=== PATIENT | female | born 1935 | race Caucasian/White ===

== ENCOUNTER 2024-01-31 06:30 | Day surgery (SDC) | payer OTHER, SELFPAY ==
[2024-01-23 09:55] VITALS: BMI 28.9
[2024-01-23 10:18] LABS: Hematocrit 39.8 % (37.0-47.0); Hemoglobin 13.3 g/dL (12.0-16.0); Mean Corp Hgb Conc. 33.4 g/dL (33.0-37.0); Mean Corpuscular Hgb 28.4 pg (27.0-31.0); Mean Corpuscular Volume 84.9 fL (81.0-99.0); Mean Platelet Volume 9.5 fL (7.4-10.4); Platelet Count 308 10^3/uL (130-400); Red Blood Cell Count 4.69 10^6/uL (4.20-5.40); Red Cell Dist. Width 14.4 % (11.5-14.5); White Blood Cell Count 6.4 10^3/uL (4.8-10.8)
[2024-01-23 10:19] LABS: Urine Albumin Trace (Neg - Trace); Urine Bilirubin Negative (Negative); Urine Character Slightly Cloudy (Clear); Urine Color Yellow; Urine Glucose Negative (Negative); Urine Ketone Negative (Negative); Urine Leukocyte 2+ (Negative); Urine Nitrite Negative (Negative); Urine Occult Blood 1+ (Negative); Urine Urobilinogen Negative (Neg - 1+)
[2024-01-23 10:27] LABS: INR 1.63; PT 19.4 Sec (11.4-14.6)
[2024-01-23 10:28] LABS: APTT 38.5 Sec (23.4-35.0); Urine Red Blood Cell 0-2 /HPF (0-2); Urine White Cell 30-40 /HPF (0-5)
[2024-01-23 11:04] LABS: Blood Urea Nitrogen 13 mg/dl (7-17); Estimated Creatinine Clearance 51 ml/min; Glucose 91 mg/dl (70-99); Sodium 137 mmol/L (135-145); eGFR > 60.00
[2024-01-23 11:05] LABS: Calcium 9.3 mg/dl (8.4-10.2); Carbon Dioxide 24 mmol/L (22-30); Chloride 106 mmol/L (98-107); Potassium 4.1 mmol/L (3.5-5.1)
--- NOTE | 2024-01-24 13:59 | PTCARENOTE ---
Abnormal lab values on 01/22: Urine WBC's 30-40; INR 1.63. Reported to Paty at Dr. Jimenez' office.
[2024-01-31] VITALS (10 sets, daily range): BP systolic 112–158; BP diastolic 65–104; BMI 28.9
[2024-01-31] MEDS: CYSVIEW KIT 100 MG INTRAVES (09:35)
[2024-01-31] MEDS: NORMOSOL-R 1000 IV (09:40)
[2024-01-31] MEDS: Pyridium 200 MG PO (12:37)
== END 2024-01-31 13:55 | disposition home or self-care (01) ==
LOC: SDS 06:30
PROVIDERS: ATTENDING PHYSICIAN Specialist; FAMILY PHYSICIAN Student in an Organized Health Care Education/Training Program; OTHER PHYSICIAN Internal Medicine
DX: N30.00 Acute cystitis without hematuria (principal); N30.20 Other chronic cystitis without hematuria; Z85.51 Personal history of malignant neoplasm of bladder
CPT/HCPCS: 52235; C9738; 88307; 36415; 80048; 81003; 81015; 85027; 85610; 85730; 87070; 88341; 88342

== ENCOUNTER 2024-06-18 11:35 | Emergency (ER) | payer OTHER, SELFPAY ==
[2024-06-18 11:38] VITALS: BP 131/74
[2024-06-18 13:00] VITALS: BP 149/70
[2024-06-18] MEDS: DILAUDID 0.5 MG IV (13:08)
[2024-06-18 13:20] VITALS: BP 164/77
--- NOTE | 2024-06-18 14:16 | ED.MUSCINJ ---
HPI-Injury
General
Chief Complaint: Musculo-Skeletal Complaint
Source: patient
Exam Limitations: none
Time Seen by Provider: 06/18/24 12:12
History of Present Illness-Injury
Initial Injury comments:
89-year-old female presents after trip and fall earlier today landing on outstretched left hand. She complains of left wrist swelling and pain. She is on Eliquis twice a day. She did not hit her head. No other complaints at this time.
Past History
Past History
ED Past Medical History: Arrthythmia (afib), CVA (TIA), GERD, HTN, Hypercholesterolemia, Other (anemia), Other (IBS) and Other ([place] Palsy)
ED Past Surgical History: Appendectomy and Orthopedic
Social History
Tobacco: Non-smoker
Alcohol: None
Drug: None
Personal:
Living: with family
Employment: Retired
Family History
Family History: Hypertension
Phy Exam
Physical Exam
Physical Exam:
General: Well appearing female NAD
HEENT: NC/AT
Heart: RRR, no murmurs
Lungs; CTA
MSK: left wrist swollen, with ecchymosis and tenderness, slight deformity, no tenderness to elbow
Neuro: Alert and oriented. Good sensation to left hand
Injury Course
Orders/Labs/Results
Orders:
Orders
06/18/24 11:40
Wrist, Left 3 Views CR [CR Wrist - Left Min 3 Views] Urgent
Comment:
Reason For Exam: pain and swelling after a fall
06/18/24 12:34
HYDROmorphone [Dilaudid] 0.5 mg IV NOW STA
06/18/24 13:26
CR Wrist - Left Min 2 Views Urgent
Reason For Exam: post reduction
MDM/Problems Addressed
Differential Diagnosis Includes:
Left wrist pain and swelling after fall. Consider fracture first dislocation versus sprain
I personally visualized x-rays of the left wrist that were taken through triage which demonstrate angulated impacted and slightly displaced distal radius fracture with associated ulnar styloid fracture.
Discussed findings with patient and daughter. Recommended attempt at reduction. They are in agreement.
Patient given IV Dilaudid for pain control and hematoma block. Patient's hand was placed in finger traps using an IV pole and weight was applied to the upper arm to apply traction. Dorsal pressure was then applied over the fracture site and the
patient was splinted in this position. Cast padding 2 inch OCL and Iban bandages were used to make a sugar-tong splint. She was neurovascular intact after the splint was applied. Postreduction films demonstrate significant improvement of the
fracture however there is still slight posterior displacement. Relayed this information to the patient. Advised the need to follow-up with orthopedics. Stable for the. She is comfortable taking [id number] medication at home for pain
*Critical Care Note
Total Time (30-74mins, 75-104mins- exclusive of procedures): Not Applicable
ED Attending Note
-
Portions of this chart may have been created with voice recognition software.� Occasional wrong word or��sound alike� substitutions may have occurred due to the inherent limitations of voice recognition software.
Discharge Plan
Departure
Patient Disposition: Home (Routine Discharge)
Date of Disposition: 06/18/24
Time of Disposition: 14:22
Patient with high blood pressure during this ER visit?: No
Discharge Problem:
Distal radial fracture
Instructions: Muscle and Bone Pain (DC), Splint Care
Prescriptions:
No Action
simvastatin 40 MG tablet
40 mg PO HS
zolpidem 5 MG tablet
2.5 mg PO HS PRN (Reason: sleep)
Patient Comments:
05/05/2022: last filled 04/10/22, 90 tabs for 90 days from [facility]
diltiazem HCl 60 MG tablet
60 mg PO QPM
Patient Comments:
AFTER DINNER
tramadol 50 mg tablet
50 mg PO TID PRN (Reason: pain) Qty: 10 0RF
gabapentin 400 mg Capsule
400 mg PO BID
ferrous sulfate [Feosol] 325 mg (65 mg iron) Tablet
325 mg PO Q48H
metoprolol succinate 25 mg Tablet Extended Release 24 Hr
25 mg PO DAILY
coenzyme Q10 [Co Q-10] 200 mg Capsule
200 mg PO DAILY
Eliquis 5 mg Tablet
5 mg PO BID
Glucosamine Chondroitin 550-30-1 mg Capsule
1 cap PO BID
Jonatan Red Krill Oil
350 mg PO DAILY
Prevagen
1 tab PO DAILY
Cbd Gummy
1 dose PO PRN PRN (Reason: Pain)
melatonin 10 mg Tablet
10 mg PO HS PRN (Reason: Insomnia)
omeprazole 40 mg Capsule,Delayed Release(Dr/Ec)
40 mg PO DAILY
Referrals:
Mya Carey MD [Family Provider] -
Landon Hawkins MD [Active] -
Activity Restrictions/Additional Instructions:
Elevate for swelling. Use Tylenol for pain. Keep splint on and dry. Return if worse otherwise follow-up with orthopedics for next available appointment
Interventions
Interventions:
ED-Musculoskeletal Assessment Last Done: 06/18/24 12:30
Discharge Date and Time
Print Language: ANGUILLAN
== END 2024-06-18 15:01 | disposition home or self-care (01) ==
LOC: EMR 11:35
PROVIDERS: EMERGENCY PHYSICIAN Emergency Medicine; FAMILY PHYSICIAN Student in an Organized Health Care Education/Training Program
DX: S52.572A Other intraarticular fracture of lower end of left radius, initial encounter for closed fracture (principal); S52.612A Displaced fracture of left ulna styloid process, initial encounter for closed fracture; W01.0XXD Fall on same level from slipping, tripping and stumbling without subsequent striking against object, subsequent encounter; I10 Essential (primary) hypertension; Z79.01 Long term (current) use of anticoagulants
CPT/HCPCS: 25605; 99285; 96374; 73100; 73110

== ENCOUNTER 2024-06-25 06:18 | Day surgery (SDC) | payer OTHER, SELFPAY ==
[2024-06-25] VITALS (13 sets, daily range): BP systolic 112–189; BP diastolic 70–150; BMI 27.6
[2024-06-25 15:04] LABS: Hematocrit 35.3 % (37.0-47.0); Hemoglobin 11.7 g/dL (12.0-16.0); Mean Corp Hgb Conc. 33.1 g/dL (33.0-37.0); Mean Corpuscular Hgb 28.9 pg (27.0-31.0); Mean Corpuscular Volume 87.2 fL (81.0-99.0); Mean Platelet Volume 9.7 fL (7.4-10.4); Platelet Count 296 10^3/uL (130-400); Red Blood Cell Count 4.05 10^6/uL (4.20-5.40); Red Cell Dist. Width 14.1 % (11.5-14.5); White Blood Cell Count 6.1 10^3/uL (4.8-10.8)
[2024-06-25 15:09] LABS: Blood Urea Nitrogen 10 mg/dl (7-17); Carbon Dioxide 24 mmol/L (22-30); Chloride 104 mmol/L (98-107); Estimated Creatinine Clearance 52 ml/min; Glucose 90 mg/dl (70-99); Potassium 4.2 mmol/L (3.5-5.1); Sodium 139 mmol/L (135-145); eGFR > 60.00
[2024-06-25] MEDS: TYLENOL 1000 MG PO (15:15)
[2024-06-25] MEDS: DILAUDID 0.25 MG IV (18:18)
[2024-06-25] MEDS: ZOFRAN 4 MG IV (18:37)
[2024-06-25] MEDS: COMPAZINE 5 MG IV (18:50)
== END 2024-06-25 19:50 | disposition home or self-care (01) ==
LOC: SDS 06:18
PROVIDERS: ATTENDING PHYSICIAN Orthopaedic Surgery Hand Surgery
DX: S62.102A Fracture of unspecified carpal bone, left wrist, initial encounter for closed fracture (principal); X58.XXXA Exposure to other specified factors, initial encounter
CPT/HCPCS: 25607; 80048; 85027; 87070; 93005; C1713

== ENCOUNTER → 2024-09-10 11:02 | Outpatient (REF) | payer OTHER, SELFPAY | LOC: RCS 11:02 | PROVIDERS: ATTENDING PHYSICIAN Nurse Practitioner Gerontology; FAMILY PHYSICIAN Student in an Organized Health Care Education/Training Program | DX: I34.0 Nonrheumatic mitral (valve) insufficiency (principal) | CPT/HCPCS: 93306 ==

== ENCOUNTER → 2024-09-30 10:04 | Outpatient (REF) | payer OTHER, SELFPAY | LOC: HWRAD 10:04 | PROVIDERS: ATTENDING PHYSICIAN Student in an Organized Health Care Education/Training Program | DX: Z87.81 Personal history of (healed) traumatic fracture (principal); N95.9 Unspecified menopausal and perimenopausal disorder | CPT/HCPCS: 77080 ==

== ENCOUNTER → 2024-11-20 10:41 | Outpatient (REF) | payer OTHER, SELFPAY | LOC: RAD 10:41 | PROVIDERS: ATTENDING PHYSICIAN Student in an Organized Health Care Education/Training Program; FAMILY PHYSICIAN Student in an Organized Health Care Education/Training Program | DX: M54.9 Dorsalgia, unspecified (principal); M81.0 Age-related osteoporosis without current pathological fracture; R29.890 Loss of height; S22.080S Wedge compression fracture of T11-T12 vertebra, sequela; S62.102S Fracture of unspecified carpal bone, left wrist, sequela | CPT/HCPCS: 72040; 72072; 72100 ==

== ENCOUNTER → 2025-02-26 14:15 | Outpatient (REF) | payer OTHER, SELFPAY | LOC: RAD 14:15 | PROVIDERS: ATTENDING PHYSICIAN Internal Medicine; FAMILY PHYSICIAN Student in an Organized Health Care Education/Training Program | DX: I70.0 Atherosclerosis of aorta (principal) | CPT/HCPCS: 93880 ==